=== PATIENT | male | born 1935 | race Native Hawaiian/Other Pacific Islander ===

== ENCOUNTER 2016-04-30 08:20 | Outpatient (CLI) | payer OTHER ==
[~2016-04-30 08:20] MED LIST: CEFU250T2 PO; FEXOFENADINE H180 MG PO; FLUT0.05 NAS; METFTAB PO; TAMS0.4C PO
[2016-04-30 08:39] LABS: PLATELET COUNT 136 K/uL (142-355)
== END 2016-04-30 19:27 | disposition home or self-care (01) ==
LOC: LABW 08:20
PROVIDERS: Internal Medicine
DX: E11.9 Type 2 diabetes mellitus without complications (principal)
CPT/HCPCS: 36415; 80053; 80061; 81000; 82043; 82570; 83036; 84439; 84443; 85027

== ENCOUNTER 2016-05-05 13:16 | Outpatient (CLI) | payer OTHER | END 2016-05-05 19:19 | disposition home or self-care (01) | LOC: MRI 13:16 | DX: G45.9 Transient cerebral ischemic attack, unspecified (principal) ==

== ENCOUNTER 2017-05-23 12:04 | Outpatient (CLI) | payer OTHER ==
[2017-05-23 13:15] LABS: PLATELET COUNT 152 K/uL (142-355)
== END 2017-05-23 21:32 | disposition home or self-care (01) ==
LOC: LABW 12:04
PROVIDERS: Internal Medicine
DX: E11.9 Type 2 diabetes mellitus without complications (principal); R53.82 Chronic fatigue, unspecified; E55.9 Vitamin D deficiency, unspecified; Z12.5 Encounter for screening for malignant neoplasm of prostate; R97.20 Elevated prostate specific antigen [PSA]; R35.1 Nocturia
CPT/HCPCS: 36415; 80053; 82306; 82607; 84153; 84439; 84443; 85027

== ENCOUNTER 2017-06-07 09:26 | Outpatient (CLI) | payer OTHER | END 2017-06-07 22:54 | disposition home or self-care (01) | LOC: CT 09:26 | DX: R10.32 Left lower quadrant pain (principal) | CPT/HCPCS: 36415; 82565; 84520; Q9963 ==

== ENCOUNTER 2017-11-17 09:42 | Outpatient (CLI) | payer OTHER ==
[2017-11-17 10:09] LABS: PLATELET COUNT 136 K/uL (142-355)
[2017-11-17 10:44] LABS: POTASSIUM 4.7 mmol/L (3.6-5.2)
== END 2017-11-17 23:19 | disposition home or self-care (01) ==
LOC: LABW 09:42
PROVIDERS: Internal Medicine
DX: E11.9 Type 2 diabetes mellitus without complications (principal); N40.1 Benign prostatic hyperplasia with lower urinary tract symptoms
CPT/HCPCS: 36415; 80053; 80061; 81000; 82043; 82570; 83036; 84153; 84439; 84443; 85027

== ENCOUNTER 2018-04-18 16:42 | Outpatient (CLI) | payer OTHER, MEDICARE | END 2018-04-18 20:34 | disposition home or self-care (01) | LOC: RAD 16:42 | DX: R06.02 Shortness of breath (principal) ==

== ENCOUNTER 2018-06-09 15:12 | Outpatient (CLI) | payer OTHER, MEDICARE | END 2018-06-09 22:29 | disposition home or self-care (01) | LOC: RAD 15:12 | DX: M79.605 Pain in left leg (principal); M79.652 Pain in left thigh ==

== ENCOUNTER 2018-06-19 14:53 | Outpatient (CLI) | payer OTHER | END 2018-06-19 23:06 | disposition home or self-care (01) | LOC: US 14:53 | DX: M79.652 Pain in left thigh (principal) ==

== ENCOUNTER 2018-07-07 11:29 | Emergency (ER) | payer OTHER, MEDICARE ==
[~2018-07-07] VITALS: Ht 182.9 cm; Wt 85.7 kg
[2018-07-07] MEDS ORDERED: BRILINTA90 MG PO (11:40)
[2018-07-07] MEDS ORDERED: GLIP10TA55 PO (11:41)
[2018-07-07 11:42] VITALS: TEMP 99.3
[2018-07-07] MEDS ORDERED: LIPITOR40 MG PO (11:42)
[2018-07-07] MEDS ORDERED: BAYER ASPIRIN E81 MG PO (11:42)
[2018-07-07] MEDS ORDERED: METF500T PO (11:43)
[2018-07-07] MEDS ORDERED: METO50TA63 PO (11:44)
[2018-07-07 12:39] LABS: PLATELET COUNT 216 K/uL (142-355)
[2018-07-07 12:42] LABS: POTASSIUM 4.5 mmol/L (3.6-5.2); SODIUM 141 mmol/L (136-145)
[2018-07-07 16:00] VITALS: BP 120/60
== END 2018-07-07 16:00 | disposition home or self-care (01) ==
LOC: ED 11:29
PROVIDERS: Emergency Medicine
DX: E86.0 Dehydration (principal); Z98.890 Other specified postprocedural states; I45.19 Other right bundle-branch block
CPT/HCPCS: 36415; 80053; 81000; 82550; 84484; 85027; 93005; 96360; 99284

== ENCOUNTER 2018-07-17 12:34 | Outpatient (CLI) | payer OTHER, MEDICARE ==
[~2018-07-17 12:34] MED LIST changes: +BAYER ASPIRIN E81 MG PO; +BRILINTA90 MG PO; +GLIP10TA55 PO; +LIPITOR40 MG PO; +METF500T PO; +METO50TA63 PO
[2018-07-17 16:13] LABS: PLATELET COUNT 203 K/uL (142-355)
== END 2018-07-17 20:24 | disposition home or self-care (01) ==
LOC: RAD 12:34 → LABW 12:34
PROVIDERS: Physician Assistant
DX: M25.511 Pain in right shoulder (principal); M25.551 Pain in right hip; M25.552 Pain in left hip; Z79.899 Other long term (current) drug therapy
CPT/HCPCS: 36415; 84443; 85027; 85651; 86140

== ENCOUNTER 2018-07-21 08:03 | Outpatient (CLI) | payer OTHER, MEDICARE | END 2018-07-21 23:16 | disposition home or self-care (01) | LOC: NM 08:03 | DX: R52 Pain, unspecified (principal) | CPT/HCPCS: A9561 ==

== ENCOUNTER 2018-09-12 14:30 | Outpatient (CLI) | payer OTHER, MEDICARE ==
[2018-09-12 14:59] LABS: PLATELET COUNT 182 K/uL (142-355)
[2018-09-12 15:32] LABS: POTASSIUM 4.3 mmol/L (3.6-5.2)
== END 2018-09-12 20:02 | disposition home or self-care (01) ==
LOC: LABW 14:30
PROVIDERS: Nurse Practitioner Family
DX: M35.3 Polymyalgia rheumatica (principal); Z79.899 Other long term (current) drug therapy
CPT/HCPCS: 36415; 80053; 85027; 85651; 86140

== ENCOUNTER 2018-10-12 15:31 | Outpatient (CLI) | payer OTHER, MEDICARE | END 2018-10-12 20:11 | disposition home or self-care (01) | LOC: LABW 15:31 | DX: M35.3 Polymyalgia rheumatica (principal); Z79.899 Other long term (current) drug therapy | CPT/HCPCS: 36415; 85651; 86140 ==

== ENCOUNTER 2018-10-24 09:26 | Outpatient (CLI) | payer OTHER, MEDICARE | END 2018-10-24 20:58 | disposition home or self-care (01) | LOC: LABW 09:26 | PROVIDERS: Internal Medicine Cardiovascular Disease | DX: E78.49 Other hyperlipidemia (principal); I25.119 Atherosclerotic heart disease of native coronary artery with unspecified angina pectoris; Z09 Encounter for follow-up examination after completed treatment for conditions other than malignant neoplasm | CPT/HCPCS: 36415; 80061; 80076 ==

== ENCOUNTER 2018-11-17 08:59 | Outpatient (CLI) | payer OTHER, MEDICARE ==
[2018-11-17 09:16] LABS: PLATELET COUNT 169 K/uL (142-355)
[2018-11-17 09:32] LABS: POTASSIUM 4.6 mmol/L (3.6-5.2)
== END 2018-11-17 22:06 | disposition home or self-care (01) ==
LOC: LABW 08:59
PROVIDERS: Nurse Practitioner Family
DX: M35.3 Polymyalgia rheumatica (principal); Z79.899 Other long term (current) drug therapy
CPT/HCPCS: 36415; 80053; 85027; 85651; 86140

== ENCOUNTER 2018-12-28 16:36 | Outpatient (CLI) | payer OTHER, MEDICARE ==
[2018-12-28 19:06] LABS: PLATELET COUNT 164 K/uL (142-355)
[2018-12-28 19:15] LABS: POTASSIUM 3.7 mmol/L (3.6-5.2)
== END 2018-12-28 20:48 | disposition home or self-care (01) ==
LOC: LAB 16:36 → LABW 16:36 → LAB 20:48
PROVIDERS: Internal Medicine
DX: M35.3 Polymyalgia rheumatica (principal); R35.1 Nocturia; R53.82 Chronic fatigue, unspecified; D64.9 Anemia, unspecified
CPT/HCPCS: 80053; 82306; 83540; 83735; 84153; 84443; 85027

== ENCOUNTER 2019-07-09 16:03 | Outpatient (CLI) | payer OTHER, MEDICARE | END 2019-07-09 19:40 | disposition home or self-care (01) | LOC: RAD 16:03 | DX: R09.1 Pleurisy (principal); R07.81 Pleurodynia ==

== ENCOUNTER 2020-03-04 10:37 | Outpatient (CLI) | payer OTHER, MEDICARE | END 2020-03-04 19:12 | disposition home or self-care (01) | LOC: RAD 10:37 | PROVIDERS: ATTEND Internal Medicine | DX: J40 Bronchitis, not specified as acute or chronic (principal) ==

== ENCOUNTER 2020-08-14 13:00 | Outpatient (CLI) | payer OTHER, MEDICARE | END 2020-08-14 23:50 | disposition home or self-care (01) | LOC: NM 13:00 | PROVIDERS: ATTEND Internal Medicine | DX: K80.20 Calculus of gallbladder without cholecystitis without obstruction (principal) | CPT/HCPCS: A9537 ==

== ENCOUNTER 2021-01-26 11:54 | Outpatient (CLI) | payer OTHER, MEDICARE | END 2021-01-26 21:51 | disposition home or self-care (01) | LOC: LABW 11:54 | PROVIDERS: ATTEND Internal Medicine | DX: I48.0 Paroxysmal atrial fibrillation (principal) | CPT/HCPCS: 36415; 85610 ==

== ENCOUNTER 2021-02-18 14:29 | Outpatient (CLI) | payer OTHER, MEDICARE | END 2021-02-18 20:31 | disposition home or self-care (01) | LOC: LABW 14:29 | PROVIDERS: ATTEND Internal Medicine Cardiovascular Disease | DX: R31.0 Gross hematuria (principal); I48.0 Paroxysmal atrial fibrillation | CPT/HCPCS: 36415; 81000; 85610; 87088 ==

== ENCOUNTER 2021-07-07 11:43 | Outpatient (CLI) | payer OTHER, MEDICARE | END 2021-07-07 19:45 | disposition home or self-care (01) | LOC: LABW 11:43 | PROVIDERS: ATTEND Internal Medicine | DX: D68.8 Other specified coagulation defects (principal) | CPT/HCPCS: 36415; 85610 ==

== ENCOUNTER 2021-07-15 14:00 | Outpatient (CLI) | payer OTHER, MEDICARE | END 2021-07-15 21:42 | disposition home or self-care (01) | LOC: LABW 14:00 | PROVIDERS: ATTEND Internal Medicine | DX: D68.8 Other specified coagulation defects (principal) | CPT/HCPCS: 36415; 85610 ==

== ENCOUNTER 2021-08-24 14:52 | Outpatient (CLI) | payer OTHER, MEDICARE | END 2021-08-24 19:03 | disposition home or self-care (01) | LOC: LABW 14:52 | PROVIDERS: ATTEND Internal Medicine | DX: D68.9 Coagulation defect, unspecified (principal) | CPT/HCPCS: 36415; 85610 ==

== ENCOUNTER 2021-09-29 14:39 | Outpatient (CLI) | payer OTHER, MEDICARE ==
[2021-09-29 15:01] LABS: PLATELET COUNT 141 K/uL (142-355)
== END 2021-09-29 18:58 | disposition home or self-care (01) ==
LOC: LABW 14:39
PROVIDERS: ATTEND Internal Medicine
DX: D68.9 Coagulation defect, unspecified (principal); R79.89 Other specified abnormal findings of blood chemistry; Z79.899 Other long term (current) drug therapy
CPT/HCPCS: 36415; 84439; 84443; 85027; 85610

== ENCOUNTER 2021-11-12 15:43 | Outpatient (CLI) | payer OTHER, MEDICARE ==
[2021-11-12 16:08] LABS: PLATELET COUNT 196 K/uL (142-355)
== END 2021-11-12 19:35 | disposition home or self-care (01) ==
LOC: LABW 15:43
PROVIDERS: ATTEND Internal Medicine
DX: D68.8 Other specified coagulation defects (principal); R79.89 Other specified abnormal findings of blood chemistry; Z79.899 Other long term (current) drug therapy
CPT/HCPCS: 36415; 84439; 84443; 85027; 85610

== ENCOUNTER 2022-01-11 15:34 | Outpatient (CLI) | payer OTHER, MEDICARE | END 2022-01-11 19:39 | disposition home or self-care (01) | LOC: LABW 15:34 | PROVIDERS: ATTEND Internal Medicine | DX: D68.8 Other specified coagulation defects (principal) | CPT/HCPCS: 36415; 85610 ==

== ENCOUNTER 2022-02-03 08:53 | Outpatient (CLI) | payer OTHER, MEDICARE ==
[2022-02-03 09:09] LABS: PLATELET COUNT 124 K/uL (142-355)
[2022-02-03 09:10] LABS: POTASSIUM 4.4 mmol/L (3.6-5.2)
== END 2022-02-03 19:18 | disposition home or self-care (01) ==
LOC: LABW 08:53 → CT 09:00 → LABW 19:18
PROVIDERS: ATTEND Internal Medicine
DX: R10.31 Right lower quadrant pain (principal)
CPT/HCPCS: 36415; 80048; 82565; 85027; Q9963

== ENCOUNTER 2022-04-12 10:46 | Outpatient (CLI) | payer OTHER, MEDICARE | END 2022-04-12 19:04 | disposition home or self-care (01) | LOC: LABW 10:46 | PROVIDERS: ATTEND Internal Medicine | DX: D68.8 Other specified coagulation defects (principal) | CPT/HCPCS: 36415; 85610 ==

== ENCOUNTER 2022-04-27 12:35 | Outpatient (CLI) | payer OTHER, MEDICARE | END 2022-04-27 19:39 | disposition home or self-care (01) | LOC: LABW 12:35 | PROVIDERS: ATTEND Internal Medicine | DX: D68.8 Other specified coagulation defects (principal) | CPT/HCPCS: 36415; 85610 ==

== ENCOUNTER 2022-06-16 12:08 | Outpatient (CLI) | payer OTHER, MEDICARE | END 2022-06-16 17:00 | disposition home or self-care (01) | LOC: LABW 12:08 | PROVIDERS: ATTEND Internal Medicine | DX: D68.8 Other specified coagulation defects (principal) | CPT/HCPCS: 36415; 85610 ==

== ENCOUNTER 2022-07-02 08:31 | Outpatient (CLI) | payer OTHER, MEDICARE | END 2022-07-02 19:14 | disposition home or self-care (01) | LOC: LABW 08:31 | PROVIDERS: ATTEND Internal Medicine | DX: D68.8 Other specified coagulation defects (principal) | CPT/HCPCS: 36415; 85610 ==

== ENCOUNTER 2022-07-16 11:48 | Outpatient (CLI) | payer OTHER, MEDICARE | END 2022-07-16 19:21 | disposition home or self-care (01) | LOC: LABW 11:48 | PROVIDERS: ATTEND Internal Medicine | DX: M79.89 Other specified soft tissue disorders (principal); D68.8 Other specified coagulation defects | CPT/HCPCS: 36415; 85610 ==

== ENCOUNTER 2022-08-03 12:08 | Outpatient (CLI) | payer OTHER, MEDICARE | END 2022-08-03 19:07 | disposition home or self-care (01) | LOC: LABW 12:08 | PROVIDERS: ATTEND Internal Medicine | DX: D68.8 Other specified coagulation defects (principal); M79.601 Pain in right arm | CPT/HCPCS: 36415; 85610 ==

== ENCOUNTER 2022-08-05 12:02 | Observation (INO) | payer OTHER, MEDICARE ==
[~2022-08-05] VITALS: Ht 182.9 cm; Wt 83.7 kg
[2022-08-05] VITALS (12 sets, daily range): BP systolic 131–179; BP diastolic 45–72; TEMP 97.3–97.8; Ht 182.9 cm; Wt 83.7 kg
[2022-08-05 12:34] LABS: PLATELET COUNT 130 K/uL (142-355)
[2022-08-05 13:07] LABS: POTASSIUM 4.8 mmol/L (3.6-5.2)
[2022-08-05] MEDS ORDERED: EUTHYROX25 MCG PO (19:11)
[2022-08-05] MEDS ORDERED: KLOR-CON M1010 MEQ PO (19:11)
[2022-08-05] MEDS ORDERED: CLOP75TA2 PO (19:12)
[2022-08-05] MEDS ORDERED: XALATAN0.005 % OPTH (19:16)
[2022-08-05] MEDS ORDERED: BRIMONIDINE0.2 % OPTH (19:18)
[2022-08-05] MEDS ORDERED: WARF5TAB6 PO (19:20)
[2022-08-05] MEDS ORDERED: PRAVASTATIN10 MG PO (19:20)
[2022-08-05] MEDS ORDERED: MULTIVITAMIN1 TA1 PO (19:22)
[2022-08-06 00:24] VITALS: BP 160/61; TEMP 97.6
[2022-08-06 04:00] VITALS: BP 189/70; TEMP 98.5
[2022-08-06 05:06] LABS: PLATELET COUNT 144 K/uL (142-355)
[2022-08-06 05:43] LABS: POTASSIUM 4.7 mmol/L (3.6-5.2)
[2022-08-06 08:05] VITALS: BP 161/64; TEMP 97.7
== END 2022-08-06 12:32 | disposition home or self-care (01) ==
LOC: ED 12:02 → MED/SURG 16:48
PROVIDERS: Emergency Medicine; ADMIT Internal Medicine; ATTEND Internal Medicine
DX: S50.11XA Contusion of right forearm, initial encounter (principal); T45.515A Adverse effect of anticoagulants, initial encounter; Y92.89 Other specified places as the place of occurrence of the external cause; I48.20 Chronic atrial fibrillation, unspecified; Z79.01 Long term (current) use of anticoagulants; E86.0 Dehydration
CPT/HCPCS: 36415; 80048; 80053; 82550; 83880; 84443; 84484; 85027; 85379; 85610; 85730; 93005; 96372; 99221; 99284; G0378; J3430

== ENCOUNTER 2022-08-11 14:50 | Outpatient (CLI) | payer OTHER, MEDICARE ==
[~2022-08-11 14:50] MED LIST changes: +BRIMONIDINE0.2 % OPTH; +CLOP75TA2 PO; +EUTHYROX25 MCG PO; +KLOR-CON M1010 MEQ PO; +MULTIVITAMIN1 TA1 PO; +PRAVASTATIN10 MG PO; +WARF5TAB6 PO; +XALATAN0.005 % OPTH
[2022-08-11 15:17] LABS: PLATELET COUNT 175 K/uL (142-355)
== END 2022-08-11 19:01 ==
LOC: LABW 14:50
PROVIDERS: ATTEND Internal Medicine
DX: R58 Hemorrhage, not elsewhere classified (principal)
CPT/HCPCS: 36415; 85027; 85610

== ENCOUNTER 2022-10-14 09:13 | Outpatient (CLI) | payer OTHER, MEDICARE ==
[2022-10-14 09:35] LABS: PLATELET COUNT 119 K/uL (142-355)
[2022-10-14 09:52] LABS: POTASSIUM 4.3 mmol/L (3.6-5.2)
== END 2022-10-14 21:44 | disposition home or self-care (01) ==
LOC: LABW 09:13
PROVIDERS: ATTEND Internal Medicine
DX: E11.9 Type 2 diabetes mellitus without complications (principal); R58 Hemorrhage, not elsewhere classified
CPT/HCPCS: 36415; 80053; 80061; 81002; 83036; 84439; 84443; 85027; 85610